=== PATIENT | female | born 1980 | race Two or more races ===

== ENCOUNTER → 2020-10-30 | Outpatient (CLI) | payer MEDICAID ==
[~2020-10-30] MED LIST: IBUP-1222 PO; PREN1TAB56 PO; [UNRECOGNIZED DRUG - REMARK]
== END | disposition home or self-care (01) ==
LOC: CFH 15:13
PROVIDERS: ATTEND Obstetrics & Gynecology
DX: Z12.31 Encounter for screening mammogram for malignant neoplasm of breast (principal)
CPT/HCPCS: 77063; 77067